=== PATIENT | male | born 1980 | race Caucasian/White ===

== ENCOUNTER 2021-02-02 18:41 | Inpatient (IN) | payer OTHER ==
[~2021-02-02] VITALS: Ht 195.6 cm; Wt 115.0 kg
[2021-02-02 19:28] LABS: BASOPHILS ABSOLUTE AUTO 0.04 K/mm3 (0.00-0.23); BASOPHILS PERCENT AUTO 0 % (0-2); EOSINOPHILS ABSOLUTE AUTO 0.17 K/mm3 (0.00-0.68); EOSINOPHILS PERCENT AUTO 2 % (0-6); Hematocrit 44.1 % (37.0-53.0); Hemoglobin 15.8 g/dL (13.5-17.5); IMMATURE GRAN ABSOLUTE AUTO 0.03 K/mm3 (0.00-0.10); IMMATURE GRAN PERCENT AUTO 0 % (0-1); LYMPHOCYTES ABSOLUTE AUTO 1.76 K/mm3 (0.84-5.20); LYMPHOCYTES PERCENT AUTO 19 % (21-46); MONOCYTES ABSOLUTE AUTO 0.55 K/mm3 (0.16-1.47); MONOCYTES PERCENT AUTO 6 % (4-13); Mean Corpuscular HGB 31.6 pg (26.0-34.0); Mean Corpuscular HGB Conc 35.8 g/dL (31.5-36.5); Mean Corpuscular Volume 88 fL (80-100); Mean Platelet Volume 10.2 fL (9.1-12.4); NEUTROPHILS ABSOLUTE AUTO 6.92 K/mm3 (1.96-9.15); NEUTROPHILS PERCENT AUTO 73 % (41-73); Platelet Count 269 K/mm3 (150-400); RDW Coefficient Variation 12.2 % (11.7-14.2); RDW Standard Deviation 39.6 fL (35.1-46.3); White Blood Cell Count 9.47 K/mm3 (4.00-11.30)
[2021-02-02] MEDS ORDERED: OMEP20ER PO (19:49)
[2021-02-02] MEDS ORDERED: Prinivil10 MG PO (19:49)
[2021-02-02 19:54] LABS: Alanine Aminotransfer (ALT/SGP 46 U/L (12-78); Albumin, Blood 3.9 g/dL (3.4-5.0); Alk Phos 46 U/L (50-136); Anion Gap 7 mmol/L (6-16); Aspartate Aminotrans (AST/SGOT 29 U/L (12-37); Bilirubin, Total 0.9 mg/dL (0.1-1.0); Blood Urea Nitrogen 21 mg/dL (8-24); Bun/Creatinine Ratio 23.2 (12.0-20.0); CO2, Blood 24 mmol/L (21-32); Calcium, Blood 9.3 mg/dL (8.5-10.1); Chloride, Blood 106 mmol/L (98-108); Globulin, Blood 3.8 g/dL (2.2-4.0); Glomerular Filtration Rate >60 (60-); Glucose, Blood 119 mg/dL (70-99); Potassium, Blood 3.8 mmol/L (3.5-5.5); Sodium, Blood 137 mmol/L (136-145); Total Protein, Blood 7.7 g/dL (6.4-8.2)
[2021-02-02 21:11] LABS: Triglycerides 221 mg/dL (30-160)
[2021-02-03 04:54] LABS: BASOPHILS ABSOLUTE AUTO 0.02 K/mm3 (0.00-0.23); BASOPHILS PERCENT AUTO 0 % (0-2); EOSINOPHILS ABSOLUTE AUTO 0.15 K/mm3 (0.00-0.68); EOSINOPHILS PERCENT AUTO 2 % (0-6); Hematocrit 41.6 % (37.0-53.0); Hemoglobin 14.5 g/dL (13.5-17.5); IMMATURE GRAN ABSOLUTE AUTO 0.02 K/mm3 (0.00-0.10); IMMATURE GRAN PERCENT AUTO 0 % (0-1); LYMPHOCYTES ABSOLUTE AUTO 1.51 K/mm3 (0.84-5.20); LYMPHOCYTES PERCENT AUTO 24 % (21-46); MONOCYTES ABSOLUTE AUTO 0.46 K/mm3 (0.16-1.47); MONOCYTES PERCENT AUTO 7 % (4-13); Mean Corpuscular HGB 31.8 pg (26.0-34.0); Mean Corpuscular HGB Conc 34.9 g/dL (31.5-36.5); Mean Corpuscular Volume 91 fL (80-100); Mean Platelet Volume 10.1 fL (9.1-12.4); NEUTROPHILS ABSOLUTE AUTO 4.04 K/mm3 (1.96-9.15); NEUTROPHILS PERCENT AUTO 65 % (41-73); Platelet Count 198 K/mm3 (150-400); RDW Coefficient Variation 12.4 % (11.7-14.2); RDW Standard Deviation 40.9 fL (35.1-46.3); Red Blood Cell Count 4.56 M/mm3 (4.30-5.90)
[2021-02-03 05:28] LABS: Alanine Aminotransfer (ALT/SGP 37 U/L (12-78); Albumin, Blood 3.2 g/dL (3.4-5.0); Alk Phos 41 U/L (50-136); Anion Gap 5 mmol/L (6-16); Aspartate Aminotrans (AST/SGOT 16 U/L (12-37); Blood Urea Nitrogen 17 mg/dL (8-24); Bun/Creatinine Ratio 19.6 (12.0-20.0); CO2, Blood 29 mmol/L (21-32); Calcium, Blood 8.6 mg/dL (8.5-10.1); Chloride, Blood 106 mmol/L (98-108); Creatinine, Blood 0.87 mg/dL (0.60-1.20); Globulin, Blood 3.2 g/dL (2.2-4.0); Glomerular Filtration Rate >60 (60-); Glucose, Blood 107 mg/dL (70-99); Potassium, Blood 3.7 mmol/L (3.5-5.5); Sodium, Blood 140 mmol/L (136-145); Total Protein, Blood 6.4 g/dL (6.4-8.2)
--- NOTE | 2021-02-03 05:39 | NUR ---
SHIFT SUMMARY PT NEW ED ADMIT THIS EVENING. DX PANCREATITIS. PT REPORTED THAT EARLIER IN ED HE HAD SOME NAUSEA BUT IT RESOLVED ON ITS OWN. NO NAUSEA REPORTED SINCE ADMISSION. PT HAS REPORTED 7-8/10 ABD PAIN RUQ THAT RADIATES TO HIS BACK. MEDICATED PER EMAR. PT SLEPT OFF AND ON BETWEEN PAIN MEDICATION DOSES. PT HAD A MOSTLY UNEVENTFUL NIGHT.
--- NOTE | 2021-02-03 10:21 | NUR ---
PT RECIEVED IN BED AAOX4,VITALS WNL,MEDICATED FOR PAIN WITH GOOD EFFECT,DENIED NAUSEA, NO CAUTE DISTRESS NOTED, CALL LIGHT WITHIN REACH, WILL CONT TO MONITOR.
--- NOTE | 2021-02-03 17:40 | NUR ---
PT AAOX4,VITALS STABLE, MEDICATED X 3 FOR PAIN AND X1 FOR NAUSEA.CONT WITH IV FLIUDS,TOLERATING SOME WATER.CONTINENT OF B/B,SELF AMBULATORY,CT OF ABDOM,EN DONE,CALL LIGHT WITHIN REACH ,WILL CONT TO MONITOR.
--- NOTE | 2021-02-04 06:09 | NUR ---
SHIFT SUMMARY PT AA&OX3. ABLE TO MAKE NEEDS KNOWN. C/O PAIN TO ABDOMEN. PRN PAIN MEDS ADMINISTERED WITH GOOD EFFECTS. PT IS INDEPENDENT IN ROOM. CALL LIGHT WITHIN REACH. WILL CONTINUE TO MONITOR.
[2021-02-04 06:28] LABS: Hematocrit 40.3 % (37.0-53.0); Hemoglobin 14.2 g/dL (13.5-17.5); Mean Corpuscular HGB 31.9 pg (26.0-34.0); Mean Corpuscular HGB Conc 35.2 g/dL (31.5-36.5); Mean Corpuscular Volume 91 fL (80-100); Mean Platelet Volume 10.6 fL (9.1-12.4); Platelet Count 210 K/mm3 (150-400); RDW Coefficient Variation 12.2 % (11.7-14.2); RDW Standard Deviation 40.1 fL (35.1-46.3); Red Blood Cell Count 4.45 M/mm3 (4.30-5.90); White Blood Cell Count 6.22 K/mm3 (4.00-11.30)
[2021-02-04 06:58] LABS: Alanine Aminotransfer (ALT/SGP 33 U/L (12-78); Albumin, Blood 3.1 g/dL (3.4-5.0); Alk Phos 41 U/L (50-136); Anion Gap 6 mmol/L (6-16); Aspartate Aminotrans (AST/SGOT 16 U/L (12-37); Bilirubin, Total 1.1 mg/dL (0.1-1.0); Blood Urea Nitrogen 12 mg/dL (8-24); Bun/Creatinine Ratio 15.3 (12.0-20.0); CO2, Blood 28 mmol/L (21-32); Calcium, Blood 8.7 mg/dL (8.5-10.1); Chloride, Blood 103 mmol/L (98-108); Creatinine, Blood 0.79 mg/dL (0.60-1.20); Globulin, Blood 3.2 g/dL (2.2-4.0); Glomerular Filtration Rate >60 (60-); Glucose, Blood 105 mg/dL (70-99); Potassium, Blood 3.8 mmol/L (3.5-5.5); Sodium, Blood 137 mmol/L (136-145); Total Protein, Blood 6.3 g/dL (6.4-8.2)
[2021-02-05 05:50] LABS: Alanine Aminotransfer (ALT/SGP 30 U/L (12-78); Albumin, Blood 3.3 g/dL (3.4-5.0); Albumin/Globulin Ratio 0.9 (0.8-1.8); Alk Phos 42 U/L (50-136); Anion Gap 4 mmol/L (6-16); Aspartate Aminotrans (AST/SGOT 15 U/L (12-37); Blood Urea Nitrogen 11 mg/dL (8-24); Bun/Creatinine Ratio 12.7 (12.0-20.0); CO2, Blood 32 mmol/L (21-32); Calcium, Blood 9.3 mg/dL (8.5-10.1); Chloride, Blood 102 mmol/L (98-108); Creatinine, Blood 0.87 mg/dL (0.60-1.20); Globulin, Blood 3.8 g/dL (2.2-4.0); Glomerular Filtration Rate >60 (60-); Glucose, Blood 108 mg/dL (70-99); Potassium, Blood 4.1 mmol/L (3.5-5.5); Sodium, Blood 138 mmol/L (136-145); Total Protein, Blood 7.1 g/dL (6.4-8.2)
--- NOTE | 2021-02-05 06:06 | NUR ---
SHIFT SUMMARY PT IS AA&OX4. INDEPENDENT IN ROOM AND ABLE TO MAKE NEEDS KNOWN. NO ACUTE CHANGES ON THIS SHIFT. PRN PAIN MED ADMINISTERED X1 WITH GOOD EFFECTS. PT STATED HE IS BEGINNING TO FEEL A LOT BETTER AND MORE TIME BETWEEN PAIN.SAFETY MEASURES IN PLACE. WILL CONTINUE TO MONITOR.
[2021-02-05] MEDS ORDERED: METO25ER PO (12:04)
[2021-02-05] MEDS ORDERED: ONDA4 PO (12:05)
[2021-02-05] MEDS ORDERED: MIRALAX17 GM PO (12:05)
[2021-02-05] MEDS ORDERED: Percocet 5-3251 EACH PO (12:06)
[2021-02-05] MEDS ORDERED: IBUP800 PO (12:08)
--- NOTE | 2021-02-05 16:09 | NUR ---
PT IS ALERT AND ORIENTED X 4. RIGHT FLANK PAIN CONTROLLED WITH DILAUDID X 2 TODAY. HE TOLERATED CLEAR LIQ DIET. HE DENIES BM BUT STATES HE HAS FLATUS. HE DOES NOT APPEAR IN ACUTE DISTRESS AND IS DISCHARGE TODAY. SHIFT WAS UNEVENTFUL.
== END 2021-02-05 15:34 | disposition home or self-care (01) | DRG 440 ==
LOC: ER 18:41 → ERHOLD 21:05 → MEDS 22:08
PROVIDERS: Family Medicine; Physician Assistant; ADMIT Internal Medicine
DX: K85.90 Acute pancreatitis without necrosis or infection, unspecified (principal); K21.9 Gastro-esophageal reflux disease without esophagitis; I10 Essential (primary) hypertension; Z23 Encounter for immunization; M10.9 Gout, unspecified; F10.10 Alcohol abuse, uncomplicated; Z79.899 Other long term (current) drug therapy
CPT/HCPCS: 36415; 74177; 76705; 80053; 83690; 84478; 85025; 85027; 96374; 96375; 96376; 99285-25; A9270; J1170; J1650; J2405; J3010; J7030; Q9967

== ENCOUNTER 2021-06-03 06:04 | Inpatient (IN) | payer OTHER ==
[~2021-06-03] VITALS: Ht 195.6 cm; Wt 110.6 kg
[~2021-06-03 06:04] MED LIST: IBUP800 PO; METO25ER PO; MIRALAX17 GM PO; OMEP20ER PO; ONDA4 PO; ONDA4ODT MM; Percocet 5-3251 EACH PO; Prinivil10 MG PO
[2021-06-03 06:38] LABS: BASOPHILS ABSOLUTE AUTO 0.04 K/mm3 (0.00-0.23); BASOPHILS PERCENT AUTO 1 % (0-2); EOSINOPHILS ABSOLUTE AUTO 0.21 K/mm3 (0.00-0.68); EOSINOPHILS PERCENT AUTO 3 % (0-6); Hematocrit 49.7 % (37.0-53.0); Hemoglobin 17.4 g/dL (13.5-17.5); IMMATURE GRAN ABSOLUTE AUTO 0.02 K/mm3 (0.00-0.10); IMMATURE GRAN PERCENT AUTO 0 % (0-1); LYMPHOCYTES ABSOLUTE AUTO 1.31 K/mm3 (0.84-5.20); LYMPHOCYTES PERCENT AUTO 18 % (21-46); MONOCYTES ABSOLUTE AUTO 0.47 K/mm3 (0.16-1.47); MONOCYTES PERCENT AUTO 6 % (4-13); Mean Corpuscular HGB 31.4 pg (26.0-34.0); Mean Corpuscular Volume 90 fL (80-100); NEUTROPHILS ABSOLUTE AUTO 5.45 K/mm3 (1.96-9.15); NEUTROPHILS PERCENT AUTO 73 % (41-73); Platelet Count 251 K/mm3 (150-400); RDW Coefficient Variation 12.2 % (11.7-14.2); Red Blood Cell Count 5.54 M/mm3 (4.30-5.90)
[2021-06-03 06:56] LABS: Alanine Aminotransfer (ALT/SGP 32 U/L (12-78); Albumin/Globulin Ratio 1.2 (0.8-1.8); Alk Phos 52 U/L (50-136); Anion Gap 7 mmol/L (6-16); Aspartate Aminotrans (AST/SGOT 21 U/L (12-37); Bilirubin, Total 1.3 mg/dL (0.1-1.0); Blood Urea Nitrogen 15 mg/dL (8-24); Bun/Creatinine Ratio 15.5 (12.0-20.0); CO2, Blood 27 mmol/L (21-32); Calcium, Blood 9.1 mg/dL (8.5-10.1); Chloride, Blood 104 mmol/L (98-108); Creatinine, Blood 0.97 mg/dL (0.60-1.20); Globulin, Blood 3.3 g/dL (2.2-4.0); Glomerular Filtration Rate >60 (60-); Glucose, Blood 133 mg/dL (70-99); Potassium, Blood 4.1 mmol/L (3.5-5.5); Sodium, Blood 138 mmol/L (136-145); Total Protein, Blood 7.3 g/dL (6.4-8.2)
--- NOTE | 2021-06-03 17:04 | NUR ---
DAY SHIFT SUMMARY ER TRANSFER, ADMIT FOR ACUTE ON CHRONIC PANCREATITIS. PT IS ON DISTRIBUTION SPECIALIST PUMP FOR PAIN. PT HAS A HX OF PANCREATITIS, ETOH, AND HEPITITS. A/O X4, INDEPENDENT, ON RA. PT ORIENTED TO ROOM AND SURROUNDINGS, INCLUDING CALL LIGHT, ABLE TO CALL APPROPRIATELY.
[2021-06-04 05:26] LABS: BASOPHILS ABSOLUTE AUTO 0.03 K/mm3 (0.00-0.23); BASOPHILS PERCENT AUTO 1 % (0-2); EOSINOPHILS ABSOLUTE AUTO 0.18 K/mm3 (0.00-0.68); EOSINOPHILS PERCENT AUTO 3 % (0-6); Hematocrit 46.2 % (37.0-53.0); Hemoglobin 15.7 g/dL (13.5-17.5); IMMATURE GRAN ABSOLUTE AUTO 0.01 K/mm3 (0.00-0.10); IMMATURE GRAN PERCENT AUTO 0 % (0-1); LYMPHOCYTES PERCENT AUTO 24 % (21-46); MONOCYTES ABSOLUTE AUTO 0.41 K/mm3 (0.16-1.47); MONOCYTES PERCENT AUTO 8 % (4-13); Mean Corpuscular HGB 31.3 pg (26.0-34.0); Mean Corpuscular Volume 92 fL (80-100); NEUTROPHILS ABSOLUTE AUTO 3.49 K/mm3 (1.96-9.15); NEUTROPHILS PERCENT AUTO 64 % (41-73); Platelet Count 208 K/mm3 (150-400); RDW Coefficient Variation 12.5 % (11.7-14.2); RDW Standard Deviation 41.7 fL (35.1-46.3); Red Blood Cell Count 5.02 M/mm3 (4.30-5.90); White Blood Cell Count 5.42 K/mm3 (4.00-11.30)
[2021-06-04 06:09] LABS: Alanine Aminotransfer (ALT/SGP 24 U/L (12-78); Albumin, Blood 3.6 g/dL (3.4-5.0); Albumin/Globulin Ratio 1.1 (0.8-1.8); Alk Phos 49 U/L (50-136); Anion Gap 3 mmol/L (6-16); Aspartate Aminotrans (AST/SGOT 12 U/L (12-37); Bilirubin, Total 1.3 mg/dL (0.1-1.0); Blood Urea Nitrogen 13 mg/dL (8-24); CO2, Blood 29 mmol/L (21-32); Calcium, Blood 8.8 mg/dL (8.5-10.1); Chloride, Blood 106 mmol/L (98-108); Creatinine, Blood 0.93 mg/dL (0.60-1.20); Globulin, Blood 3.2 g/dL (2.2-4.0); Glomerular Filtration Rate >60 (60-); Glucose, Blood 118 mg/dL (70-99); Potassium, Blood 4.3 mmol/L (3.5-5.5); Sodium, Blood 138 mmol/L (136-145); Total Protein, Blood 6.8 g/dL (6.4-8.2)
--- NOTE | 2021-06-04 17:17 | NUR ---
DAY SHIFT SUMMARY 41 YR OLD MALE PT ADMITED FOR ACUTE ON CHRONIC PANCREATITIS. 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 CONTINUIOUS FLUIDS RUNNING. CALL LIGHT WITHIN REACH AND ABLE TO CALL APPROPRIATELY. DILAUDID FOR PAIN CHANGED TO PO. NO OTHER CHANGES THIS SHIFT.
[2021-06-05 05:41] LABS: CHOL/HDL RATIO 5.3; Cholesterol 121 mg/dL (50-200); HDL Cholesterol 23 mg/dL (>39); LDL/HDL RATIO 3.2; Low Density Lipoprotein Chol 73 mg/dL (0-110); Triglycerides 124 mg/dL (30-160); Very Low Density Lipoprot Chol 24 mg/dL (6-32)
--- NOTE | 2021-06-05 06:30 | NUR ---
PM SHIFT SUMMARY PATIENT IS HERE FOR ACUTE ON CHRONICE PANCREATITIS. PAST EPISODES OF PAIN WERE RUQ PAIN, BUT THIS TIME IT IS MORE EPIGASTRIC WHICH RADIATES TO THE LOWER BACK. HE HAS BEEN ABLE TO GET THROUGH THE SHIFT WITHOUT DILAUDID, BUT HAS BEEN SPOT ON Q4H WITH REQUIRING OXY. HE IS A&Ox4 AND AMBULATORY. HE IS CURRENTLY ON A CLEAR LIQUID DIET. HIS BILIRUBIN WAS A 1.3 AND PER PROGRESS NOTES, IF BILIRUBIN INCREASES, A RUQ US MAY BE ORDERED FOR HIM. OTHER THAN COMPLAINTS OF PAIN, HE HAS HAD NO OTHER COMPLAINTS THIS SHIFT.
[2021-06-05] MEDS ORDERED: OMEP20ER PO (14:02)
[2021-06-05] MEDS ORDERED: MIRALAX17 GM PO (14:03)
[2021-06-05] MEDS ORDERED: DOCUZEN 8.6-501 EACH PO (14:04)
--- NOTE | 2021-06-05 14:26 | NUR ---
PT. GIVEN PRINTED EDUCATION AND VERBAL EDUCATION ABOUT MEDICATIONS AND FOLLOW UP APPOINTMENTS. PATIENT HAS NO QUESTIONS. PATIENT ESCORTED BY CNAS TO WIFES CAR TO GO HOME.
--- NOTE | 2021-06-07 09:44 | NUR ---
This [facility] CM went to visit the patient in his [facility] room on 06/04 and inquired if patient would like to establish with [facility] for primary care. Patient agreeable - I have scheduled a hospital follow up with Dr. Galdamez on june 10 at 04:20PM, and a New Patient appointment to establish care with Dr. Galdamez on July 08 @ 03:40PM. Patient states he already completed the online [facility] New Patient Packet. Patient independent at baseline and lives with spouse and two children in single story home. No needs anticipated, denies barriers to discharge. Per Dr. Darling, patient appropriate to discharge 06/05/2021.
== END 2021-06-05 14:33 | disposition home or self-care (01) | DRG 440 ==
LOC: ER 06:04 → MEDS 10:51
PROVIDERS: Emergency Medicine; Internal Medicine; ADMIT Family Medicine
DX: K85.90 Acute pancreatitis without necrosis or infection, unspecified (principal); K86.1 Other chronic pancreatitis; E78.1 Pure hyperglyceridemia; F10.21 Alcohol dependence, in remission; K86.81 Exocrine pancreatic insufficiency; I45.10 Unspecified right bundle-branch block; Z79.899 Other long term (current) drug therapy
CPT/HCPCS: 36415; 71046; 80053; 80061; 83690; 84484; 85025; 93005; 93010; 94762; 96374; 96375; 99285-25; A9270; C9113; J1170; J1650; J2405; J7030; J7040

== ENCOUNTER 2021-07-21 01:26 | Emergency (ER) | payer OTHER ==
[~2021-07-21] VITALS: Ht 195.6 cm; Wt 104.3 kg
[~2021-07-21 01:26] MED LIST changes: +DOCUZEN 8.6-501 EACH PO
[2021-07-21 02:57] LABS: BASOPHILS ABSOLUTE AUTO 0.05 K/mm3 (0.00-0.23); BASOPHILS PERCENT AUTO 1 % (0-2); EOSINOPHILS ABSOLUTE AUTO 0.31 K/mm3 (0.00-0.68); EOSINOPHILS PERCENT AUTO 5 % (0-6); Hematocrit 46.2 % (37.0-53.0); Hemoglobin 16.1 g/dL (13.5-17.5); IMMATURE GRAN ABSOLUTE AUTO 0.02 K/mm3 (0.00-0.10); IMMATURE GRAN PERCENT AUTO 0 % (0-1); LYMPHOCYTES ABSOLUTE AUTO 1.69 K/mm3 (0.84-5.20); LYMPHOCYTES PERCENT AUTO 24 % (21-46); MONOCYTES ABSOLUTE AUTO 0.47 K/mm3 (0.16-1.47); MONOCYTES PERCENT AUTO 7 % (4-13); Mean Corpuscular HGB 31.1 pg (26.0-34.0); Mean Corpuscular HGB Conc 34.8 g/dL (31.5-36.5); Mean Corpuscular Volume 89 fL (80-100); Mean Platelet Volume 9.8 fL (9.1-12.4); NEUTROPHILS ABSOLUTE AUTO 4.41 K/mm3 (1.96-9.15); NEUTROPHILS PERCENT AUTO 63 % (41-73); Platelet Count 286 K/mm3 (150-400); RDW Standard Deviation 39.8 fL (35.1-46.3); Red Blood Cell Count 5.17 M/mm3 (4.30-5.90); White Blood Cell Count 6.95 K/mm3 (4.00-11.30)
[2021-07-21 02:58] LABS: Source, Urine Clean Catch
[2021-07-21 03:01] LABS: Appearance, Urine Clear (Clear); Bilirubin, Urine Neg (Neg); Blood, Urine 1+ (Neg); Color, Urine Amber (P-Yellow); Glucose Qualitative, Urine Neg (Neg); Ketones, Urine 2+ (Neg); Leukocyte Esterase, Urine Neg (Neg); Nitrite, Urine Neg (Neg); Protein, Urine Neg (Neg); Urobilinogen, Urine 2+ (Normal)
[2021-07-21 03:08] LABS: Bacteria Mod /hpf; Mucus Light (0-Heavy); Red Blood Cells, Urine 0-2 /hpf (0-2); Squamous Epithelial Cells Rare /hpf (Few); White Blood Cells, Urine Rare /hpf (0-5)
[2021-07-21 03:26] LABS: Alanine Aminotransfer (ALT/SGP 29 U/L (12-78); Albumin, Blood 3.9 g/dL (3.4-5.0); Albumin/Globulin Ratio 1.1 (0.8-1.8); Alk Phos 64 U/L (50-136); Anion Gap 5 mmol/L (6-16); Aspartate Aminotrans (AST/SGOT 15 U/L (12-37); Bilirubin, Total 1.4 mg/dL (0.1-1.0); Blood Urea Nitrogen 17 mg/dL (8-24); Bun/Creatinine Ratio 17.4 (12.0-20.0); CO2, Blood 30 mmol/L (21-32); Calcium, Blood 9.1 mg/dL (8.5-10.1); Chloride, Blood 104 mmol/L (98-108); Creatinine, Blood 0.98 mg/dL (0.60-1.20); Globulin, Blood 3.5 g/dL (2.2-4.0); Glomerular Filtration Rate >60 (60-); Glucose, Blood 122 mg/dL (70-99); Potassium, Blood 3.9 mmol/L (3.5-5.5); Sodium, Blood 139 mmol/L (136-145); Total Protein, Blood 7.4 g/dL (6.4-8.2)
[2021-07-21] MEDS ORDERED: OXYACE7.5T PO (06:12)
[2021-07-21] MEDS ORDERED: ONDA4ODT MM (06:13)
== END 2021-07-21 06:26 | disposition home or self-care (01) ==
LOC: ER 01:26
PROVIDERS: Emergency Medicine
DX: K85.90 Acute pancreatitis without necrosis or infection, unspecified (principal); K86.1 Other chronic pancreatitis
CPT/HCPCS: 36415; 74176; 80053; 81001; 83690; 85025; 87086; 93005; 93010; 96374; 96375; 99284-25; J1885; J2405; J7030

== ENCOUNTER 2021-10-05 17:40 | Emergency (ER) | payer OTHER ==
[~2021-10-05] VITALS: Ht 195.6 cm; Wt 102.1 kg
[~2021-10-05 17:40] MED LIST changes: +OXYACE7.5T PO
[2021-10-05 18:30] LABS: BASOPHILS ABSOLUTE AUTO 0.05 K/mm3 (0.00-0.23); BASOPHILS PERCENT AUTO 1 % (0-2); EOSINOPHILS ABSOLUTE AUTO 0.47 K/mm3 (0.00-0.68); EOSINOPHILS PERCENT AUTO 9 % (0-6); Hemoglobin 16.6 g/dL (13.5-17.5); IMMATURE GRAN ABSOLUTE AUTO 0.01 K/mm3 (0.00-0.10); IMMATURE GRAN PERCENT AUTO 0 % (0-1); LYMPHOCYTES ABSOLUTE AUTO 1.82 K/mm3 (0.84-5.20); LYMPHOCYTES PERCENT AUTO 36 % (21-46); MONOCYTES ABSOLUTE AUTO 0.38 K/mm3 (0.16-1.47); MONOCYTES PERCENT AUTO 8 % (4-13); Mean Corpuscular HGB 31.7 pg (26.0-34.0); Mean Corpuscular HGB Conc 35.3 g/dL (31.5-36.5); Mean Corpuscular Volume 90 fL (80-100); Mean Platelet Volume 9.6 fL (9.1-12.4); NEUTROPHILS PERCENT AUTO 46 % (41-73); Platelet Count 309 K/mm3 (150-400); RDW Standard Deviation 42.4 fL (35.1-46.3); Red Blood Cell Count 5.24 M/mm3 (4.30-5.90); White Blood Cell Count 5.03 K/mm3 (4.00-11.30)
[2021-10-05 18:47] LABS: Albumin, Blood 4.1 g/dL (3.4-5.0); Albumin/Globulin Ratio 0.9 (0.8-1.8); Bilirubin, Total 0.7 mg/dL (0.1-1.0); Bun/Creatinine Ratio 16.1 (12.0-20.0); Calcium, Blood 9.4 mg/dL (8.5-10.1); Creatinine, Blood 0.81 mg/dL (0.60-1.20); Globulin, Blood 4.4 g/dL (2.2-4.0); Total Protein, Blood 8.5 g/dL (6.4-8.2)
[2021-10-05] MEDS ORDERED: DULOXETINE HCL60 M1 PO (19:54)
== END 2021-10-05 23:25 | disposition home or self-care (01) ==
LOC: ER 17:40
PROVIDERS: Emergency Medicine
DX: K85.90 Acute pancreatitis without necrosis or infection, unspecified (principal); F17.290 Nicotine dependence, other tobacco product, uncomplicated
CPT/HCPCS: 36415; 80053; 83690; 85025; A9270; J1170; J2405; J7030

== ENCOUNTER 2022-02-15 03:21 | Emergency (ER) | payer OTHER ==
[~2022-02-15] VITALS: Ht 195.6 cm; Wt 109.8 kg
[~2022-02-15 03:21] MED LIST changes: +DULOXETINE HCL60 M1 PO; +Roxicodone5 MG PO
[2022-02-15 04:20] LABS: BASOPHILS ABSOLUTE AUTO 0.04 K/mm3 (0.00-0.23); BASOPHILS PERCENT AUTO 1 % (0-2); EOSINOPHILS ABSOLUTE AUTO 0.28 K/mm3 (0.00-0.68); EOSINOPHILS PERCENT AUTO 3 % (0-6); Hematocrit 46.3 % (37.0-53.0); Hemoglobin 16.9 g/dL (13.5-17.5); IMMATURE GRAN ABSOLUTE AUTO 0.02 K/mm3 (0.00-0.10); IMMATURE GRAN PERCENT AUTO 0 % (0-1); LYMPHOCYTES ABSOLUTE AUTO 1.84 K/mm3 (0.84-5.20); LYMPHOCYTES PERCENT AUTO 23 % (21-46); MONOCYTES ABSOLUTE AUTO 0.54 K/mm3 (0.16-1.47); MONOCYTES PERCENT AUTO 7 % (4-13); Mean Corpuscular HGB 32.6 pg (26.0-34.0); Mean Corpuscular HGB Conc 36.5 g/dL (31.5-36.5); Mean Corpuscular Volume 89 fL (80-100); Mean Platelet Volume 10.3 fL (9.1-12.4); NEUTROPHILS ABSOLUTE AUTO 5.43 K/mm3 (1.96-9.15); NEUTROPHILS PERCENT AUTO 67 % (41-73); Platelet Count 272 K/mm3 (150-400); RDW Standard Deviation 39.1 fL (35.1-46.3); Red Blood Cell Count 5.19 M/mm3 (4.30-5.90); White Blood Cell Count 8.15 K/mm3 (4.00-11.30)
[2022-02-15 04:55] LABS: Albumin, Blood 3.9 g/dL (3.4-5.0); Albumin/Globulin Ratio 1.1 (0.8-1.8); Bilirubin, Total 1.2 mg/dL (0.1-1.0); Bun/Creatinine Ratio 21.9 (12.0-20.0); Calcium, Blood 9.3 mg/dL (8.5-10.1); Creatinine, Blood 0.91 mg/dL (0.60-1.20); Globulin, Blood 3.5 g/dL (2.2-4.0); Potassium, Blood 3.9 mmol/L (3.5-5.5); Total Protein, Blood 7.4 g/dL (6.4-8.2)
[2022-02-15] MEDS ORDERED: OXYACE7.5T PO (05:40)
[2022-02-15] MEDS ORDERED: ONDA4ODT MM (05:40)
== END 2022-02-15 06:11 | disposition home or self-care (01) ==
LOC: ER 03:21
PROVIDERS: Emergency Medicine
DX: K85.90 Acute pancreatitis without necrosis or infection, unspecified (principal); F17.290 Nicotine dependence, other tobacco product, uncomplicated
CPT/HCPCS: 36415; 80053; 83690; 85025; 93005; 93010; J1170; J2270; J2405

== ENCOUNTER 2022-03-11 12:51 | Emergency (ER) | payer OTHER ==
[~2022-03-11] VITALS: Ht 195.6 cm; Wt 108.9 kg
[2022-03-11 13:56] LABS: BASOPHILS ABSOLUTE AUTO 0.04 K/mm3 (0.00-0.23); BASOPHILS PERCENT AUTO 1 % (0-2); EOSINOPHILS ABSOLUTE AUTO 0.25 K/mm3 (0.00-0.68); EOSINOPHILS PERCENT AUTO 4 % (0-6); Hematocrit 45.1 % (37.0-53.0); Hemoglobin 16.4 g/dL (13.5-17.5); IMMATURE GRAN ABSOLUTE AUTO 0.02 K/mm3 (0.00-0.10); IMMATURE GRAN PERCENT AUTO 0 % (0-1); LYMPHOCYTES ABSOLUTE AUTO 1.39 K/mm3 (0.84-5.20); LYMPHOCYTES PERCENT AUTO 20 % (21-46); MONOCYTES ABSOLUTE AUTO 0.46 K/mm3 (0.16-1.47); MONOCYTES PERCENT AUTO 7 % (4-13); Mean Corpuscular HGB 32.3 pg (26.0-34.0); Mean Corpuscular HGB Conc 36.4 g/dL (31.5-36.5); Mean Corpuscular Volume 89 fL (80-100); Mean Platelet Volume 10.2 fL (9.1-12.4); NEUTROPHILS PERCENT AUTO 69 % (41-73); Platelet Count 260 K/mm3 (150-400); RDW Coefficient Variation 11.9 % (11.7-14.2); RDW Standard Deviation 38.2 fL (35.1-46.3); Red Blood Cell Count 5.08 M/mm3 (4.30-5.90); White Blood Cell Count 7.06 K/mm3 (4.00-11.30)
[2022-03-11 14:04] LABS: Albumin, Blood 3.7 g/dL (3.4-5.0); Bilirubin, Total 1.4 mg/dL (0.1-1.0); Bun/Creatinine Ratio 23.6 (12.0-20.0); Creatinine, Blood 0.89 mg/dL (0.60-1.20); Globulin, Blood 3.6 g/dL (2.2-4.0); Potassium, Blood 3.7 mmol/L (3.5-5.5); Total Protein, Blood 7.3 g/dL (6.4-8.2)
[2022-03-11] MEDS ORDERED: ONDA4ODT MM (14:20)
[2022-03-11] MEDS ORDERED: HYDR1TAB94 PO (14:20)
== END 2022-03-11 14:25 | disposition home or self-care (01) ==
LOC: ER 12:51
PROVIDERS: Physician Assistant
DX: K85.90 Acute pancreatitis without necrosis or infection, unspecified (principal); Z79.899 Other long term (current) drug therapy; F17.290 Nicotine dependence, other tobacco product, uncomplicated
CPT/HCPCS: 36415; 80053; 83690; 85025; J1885; J2405

== ENCOUNTER 2022-04-09 17:41 | Inpatient (IN) | payer OTHER ==
[~2022-04-09] VITALS: Ht 195.6 cm; Wt 111.0 kg
[~2022-04-09 17:41] MED LIST changes: +HYDR1TAB94 PO
[2022-04-10 00:03] LABS: Albumin, Blood 3.8 g/dL (3.4-5.0); Albumin/Globulin Ratio 1.2 (0.8-1.8); Bilirubin, Total 1.6 mg/dL (0.1-1.0); Calcium, Blood 8.8 mg/dL (8.5-10.1); Creatinine, Blood 0.8 mg/dL (0.60-1.20); Globulin, Blood 3.2 g/dL (2.2-4.0); Potassium, Blood 3.7 mmol/L (3.5-5.5)
[2022-04-10 02:43] LABS: CHOL/HDL RATIO 4.1; Cholesterol 116 mg/dL (50-200); HDL Cholesterol 28 mg/dL (>39); LDL/HDL RATIO 2.2; Low Density Lipoprotein Chol 60 mg/dL (0-110); Triglycerides 138 mg/dL (30-160); Very Low Density Lipoprot Chol 27 mg/dL (6-32)
--- NOTE | 2022-04-10 04:24 | NUR ---
PATIENT ARRIVED 0225. 111 KGs. PATIENT IS AOX4 AND INDEPENDENT IN ROOM. ROOM AIR. IV IN LEFT AC INFUSES WITHOUT DIFFICULTY. NORMAL SALINE RUNNING CURRENTLY PER EMAR. PAIN ADEQUATELY MANAGED ON CURRENT FENTANYL Q 4 ORDER. PATIENT IS PLEASANT AND COOPERATIVE WITH CARE. ADMISSION ASSESSMENT UNREMARKABLE OUTSIDE OF PRESENT MARKERS OF PANCREATITIS. MEDICATION RECONCILIATION AND HEALTH HX COMPLETED WITHOUT DIFFICULTY. CALL LIGHT LEFT WITHIN REACH.
[2022-04-10 07:03] LABS: BASOPHILS ABSOLUTE AUTO 0.02 K/mm3 (0.00-0.23); BASOPHILS PERCENT AUTO 0 % (0-2); EOSINOPHILS ABSOLUTE AUTO 0.25 K/mm3 (0.00-0.68); EOSINOPHILS PERCENT AUTO 4 % (0-6); Hematocrit 37.7 % (37.0-53.0); Hemoglobin 13.3 g/dL (13.5-17.5); IMMATURE GRAN ABSOLUTE AUTO 0.02 K/mm3 (0.00-0.10); IMMATURE GRAN PERCENT AUTO 0 % (0-1); LYMPHOCYTES ABSOLUTE AUTO 1.28 K/mm3 (0.84-5.20); LYMPHOCYTES PERCENT AUTO 21 % (21-46); MONOCYTES ABSOLUTE AUTO 0.52 K/mm3 (0.16-1.47); MONOCYTES PERCENT AUTO 8 % (4-13); Mean Corpuscular HGB 31.9 pg (26.0-34.0); Mean Corpuscular HGB Conc 35.3 g/dL (31.5-36.5); Mean Corpuscular Volume 90 fL (80-100); Mean Platelet Volume 10.2 fL (9.1-12.4); NEUTROPHILS PERCENT AUTO 66 % (41-73); Platelet Count 169 K/mm3 (150-400); RDW Coefficient Variation 12.4 % (11.7-14.2); RDW Standard Deviation 40.6 fL (35.1-46.3); Red Blood Cell Count 4.17 M/mm3 (4.30-5.90); White Blood Cell Count 6.19 K/mm3 (4.00-11.30)
[2022-04-10 07:36] LABS: Alanine Aminotransfer (ALT/SGP 36 U/L (12-78); Albumin, Blood 3.4 g/dL (3.4-5.0); Albumin/Globulin Ratio 1.3 (0.8-1.8); Alk Phos 47 U/L (50-136); Anion Gap Unable to Calculate mmol/L (6-16); Aspartate Aminotrans (AST/SGOT 16 U/L (12-37); Bilirubin, Total 1.4 mg/dL (0.1-1.0); Blood Urea Nitrogen 14 mg/dL (8-24); CO2, Blood 29 mmol/L (21-32); Calcium, Blood 8.4 mg/dL (8.5-10.1); Chloride, Blood 108 mmol/L (98-108); Creatinine, Blood 0.83 mg/dL (0.60-1.20); Globulin, Blood 2.7 g/dL (2.2-4.0); Glomerular Filtration Rate 111 (60-); Glucose, Blood 140 mg/dL (70-99); Potassium, Blood 3.8 mmol/L (3.5-5.5); Sodium, Blood 135 mmol/L (136-145); Total Protein, Blood 6.1 g/dL (6.4-8.2)
--- NOTE | 2022-04-11 05:37 | NUR ---
SANITARIAN INSPECTOR SUMMARY: A&Ox4. PLEASANT AND COOPERATIVE WITH CARE. CALLS APPROPRIATELY AND IS ABLE TO COMMUNICATE NEEDS EFFECTIVELY. INDEPENDENT WITHIN ROOM. CONTINUES TO STRUGGLE WITH PAIN AND NAUSEA; MEDICATED PRN DILAUDID 2MG x2 AND 1MG x2 AND 4mg ZOFRAN T/O ENTIRETY OF SHIFT. PT HOPING TO BE ABLE TO DECREASE AND EVENTUALLY STOP IV PAIN MEDS IN HOPES OF DCing HOME TODAY. US RESULTS IN DRAFT BUT SHOWED POTENTIALLY ATROPHIC PANCREAS. CONTINUES WITH AND ABLE TO TOLERATE CLEAR LIQUID DIET. WILL REPORT TO ONCOMING RN.
[2022-04-11] MEDS ORDERED: SENNA LAXATIVE8.6 MG PO (11:48)
[2022-04-11] MEDS ORDERED: Prinivil10 MG PO (11:48)
[2022-04-11] MEDS ORDERED: CREON DR 12,001 EACH PO (11:48)
[2022-04-11] MEDS ORDERED: HYDMOR2 PO (11:48)
--- NOTE | 2022-04-11 13:12 | NUR ---
Patient doing good, continues to have moderate pain in abd. Tolerating liquid intake. Plan is to discharge home with creon meds & PO pain medicaine. Patient already has GI consult scheduled for monday. Patient verbalized understanding of discharge instructions. Removed IV, site WNL. Patient left unit at 1230.
== END 2022-04-11 12:24 | disposition home or self-care (01) | DRG 440 ==
LOC: ER 17:41 → ERHOLD 17:42 → MEDS 04-10 02:24
PROVIDERS: Student in an Organized Health Care Education/Training Program; ADMIT Internal Medicine
DX: K85.90 Acute pancreatitis without necrosis or infection, unspecified (principal); K86.1 Other chronic pancreatitis; K21.9 Gastro-esophageal reflux disease without esophagitis; I10 Essential (primary) hypertension; F10.21 Alcohol dependence, in remission; F17.210 Nicotine dependence, cigarettes, uncomplicated; Z79.899 Other long term (current) drug therapy; Z79.891 Long term (current) use of opiate analgesic
CPT/HCPCS: 36415; 76705; 80053; 80061; 83690; 85025; 93005; 93010; 96361; 96372; 96374; 96375; 96376; 99285-25; A9270; G0378; J1170; J1650; J2405; J3010; J7030; J7120

== ENCOUNTER 2022-07-09 11:16 | Emergency (ER) | payer OTHER ==
[~2022-07-09] VITALS: Ht 195.6 cm; Wt 108.9 kg
[~2022-07-09 11:16] MED LIST changes: +CREON DR 12,001 EACH PO; +HYDMOR2 PO; +OXAYDO5 M1 PO; +SENNA LAXATIVE8.6 MG PO
[2022-07-09 12:01] LABS: BASOPHILS ABSOLUTE AUTO 0.05 K/mm3 (0.00-0.23); BASOPHILS PERCENT AUTO 1 % (0-2); EOSINOPHILS ABSOLUTE AUTO 0.16 K/mm3 (0.00-0.68); EOSINOPHILS PERCENT AUTO 3 % (0-6); Hematocrit 42.4 % (37.0-53.0); Hemoglobin 15.1 g/dL (13.5-17.5); IMMATURE GRAN ABSOLUTE AUTO 0.02 K/mm3 (0.00-0.10); IMMATURE GRAN PERCENT AUTO 0 % (0-1); LYMPHOCYTES PERCENT AUTO 23 % (21-46); MONOCYTES ABSOLUTE AUTO 0.44 K/mm3 (0.16-1.47); MONOCYTES PERCENT AUTO 7 % (4-13); Mean Corpuscular HGB 31.5 pg (26.0-34.0); Mean Corpuscular HGB Conc 35.6 g/dL (31.5-36.5); Mean Corpuscular Volume 88 fL (80-100); Mean Platelet Volume 10.3 fL (9.1-12.4); NEUTROPHILS ABSOLUTE AUTO 3.94 K/mm3 (1.96-9.15); NEUTROPHILS PERCENT AUTO 66 % (41-73); Platelet Count 273 K/mm3 (150-400); RDW Coefficient Variation 11.8 % (11.7-14.2); RDW Standard Deviation 38.3 fL (35.1-46.3); White Blood Cell Count 6.01 K/mm3 (4.00-11.30)
[2022-07-09 12:23] LABS: Albumin, Blood 3.8 g/dL (3.4-5.0); Albumin/Globulin Ratio 1.1 (0.8-1.8); Bilirubin, Total 1.5 mg/dL (0.1-1.0); Bun/Creatinine Ratio 13.5 (12.0-20.0); Calcium, Blood 9.6 mg/dL (8.5-10.1); Creatinine, Blood 0.96 mg/dL (0.60-1.20); Globulin, Blood 3.6 g/dL (2.2-4.0); Total Protein, Blood 7.4 g/dL (6.4-8.2)
[2022-07-09] MEDS ORDERED: OXYACE7.5T PO (13:47)
== END 2022-07-09 14:00 | disposition home or self-care (01) ==
LOC: ER 11:16
PROVIDERS: Physician Assistant
DX: K86.1 Other chronic pancreatitis (principal); I10 Essential (primary) hypertension; K21.9 Gastro-esophageal reflux disease without esophagitis; F17.290 Nicotine dependence, other tobacco product, uncomplicated
CPT/HCPCS: 36415; 80053; 83690; 85025; 93005; 93010; 96374-59; 96375; 99284-25; A9270; J1885; J2405